=== PATIENT | female | born 1985 | race Caucasian/White ===

== ENCOUNTER 2024-05-06 17:45 | Emergency (ER) | payer OTHER, SELFPAY ==
[2024-05-06 17:48] VITALS: BP 159/100
[2024-05-06 18:48] LABS: % Basophils 0.4 % (0-2); % Immature Granulocytes 0.4 % (0-0.5); % Lymphocytes 30.3 % (20.5-51.1); % Monocytes 4.8 % (1.7-9.3); % Neutrophils 63.1 % (42.2-75.2); Absolute Eosinophils 0.1 10^3/uL (0-0.7); Absolute Monocytes 0.5 10^3/uL (0.1-0.6); Absolute Neutrophils 6.3 10^3/uL (1.4-6.5); Hematocrit 40.3 % (37.0-47.0); Hemoglobin 14.1 g/dL (12.0-16.0); Mean Corpuscular Hgb 30.2 pg (27.0-31.0); Mean Corpuscular Volume 86.3 fL (81.0-99.0); Mean Platelet Volume 9.4 fL (7.4-10.4); Nucleated Red Blood Cells % 0 %; Platelet Count 277 10^3/uL (130-400); Red Blood Cell Count 4.67 10^6/uL (4.20-5.40); Red Cell Dist. Width 12.8 % (11.5-14.5)
[2024-05-06 19:03] LABS: Urine Albumin Negative (Neg - Trace); Urine Bilirubin Negative (Negative); Urine Character Slightly Cloudy (Clear); Urine Color Yellow; Urine Glucose Negative (Negative); Urine Ketone Negative (Negative); Urine Leukocyte Negative (Negative); Urine Nitrite Negative (Negative); Urine Occult Blood 3+ (Negative); Urine Urobilinogen Negative (Neg - 1+)
[2024-05-06 19:09] LABS: Urine Bacteria Few (Negative); Urine Red Blood Cell 0-2 /HPF (0-2); Urine Squamous Cell >30 /LPF (Few); Urine White Cell 0-2 /HPF (0-5)
[2024-05-06 19:10] LABS: HCG, Serum Qualitative Screen Negative
[2024-05-06 19:16] LABS: ALT (SGPT) 33 U/L (0-35); AST (SGOT) 27 U/L (14-36); Albumin 4.7 g/dl (3.5-5.0); Alkaline Phosphatase 101 U/L (38-126); Blood Urea Nitrogen 12 mg/dl (7-17); Calcium 9.9 mg/dl (8.4-10.2); Carbon Dioxide 25 mmol/L (22-30); Chloride 100 mmol/L (98-107); Glucose 117 mg/dl (70-99); Potassium 3.9 mmol/L (3.5-5.1); Sodium 136 mmol/L (135-145); Total Bilirubin 0.6 mg/dl (0.2-1.3); Total Protein 7.1 g/dl (6.3-8.2); eGFR > 60.00
[2024-05-06] MEDS: TORADOL 15 MG IV (19:29)
[2024-05-06 19:33] VITALS: BMI 37.1
[2024-05-06 19:34] VITALS: BP 138/96
[2024-05-06 20:05] LABS: Creatine Phosphokinase 92 U/L (30-135)
[2024-05-06] MEDS: FLEXERIL 10 MG PO (22:37)
[2024-05-06 22:38] VITALS: BP 134/90
--- NOTE | 2024-05-06 22:44 | ED.GENMED ---
History of Present Illness
General
Chief Complaint: Flank Pain
Source: patient
Exam Limitations: none
Time Seen by Provider: 05/06/24 18:38
Nursing documentation reviewed up to this point in time: agreed with
History of Present Illness
History of Present Illness:
38-year-old female with history as noted presents to the ER for evaluation of back pain. Patient reports that symptoms started about a week ago and have been constant since that time. She reports pain across the low back does not localize to 1
side or the other. Worse with movement particularly flexion and rotation. No relieving factors noted. She did go to urgent care for assessment there she had a urinalysis that showed some microscopic hematuria�they were concerned potentially for a
kidney stone and referred to the ER. She has not had any dysuria, gross hematuria, change in urinary frequency. She denies any nausea, vomiting. No change in bowel movements. She denies any weakness or numbness in the legs, bowel or bladder
incontinence, saddle anesthesia. She denies any specific injury but says that she has a toddler and is constantly bending to lift her child.
Past History
Past History
ED Past Medical History: Other (LVH as seen on ECG by her family doctor, substance abuse)
ED Past Surgical History: Other ([place] teeth extraction)
Social History
Tobacco: Non-smoker
Alcohol: Occasional
Drug: IVDA
Personal: Single
Living: with family
Employment: Not employed
Review of Systems
Review of Systems
All Other Systems: ROS reviewed and negative except as documented in HPI and ROS
Constitutional: Denies fever
Respiratory: Denies trouble breathing
Cardiac: Denies chest pain
ABD/GI: Denies abdominal pain, nausea or vomiting
: Denies dysuria or frequency
Musculoskeletal: Reports back pain; Denies neck pain
Neurological: Denies headache, weakness or numbness
Phy Exam
Physical Exam
Physical Exam:
General: Awake, alert, oriented x3; no acute distress
Head: Normocephalic, atraumatic
Eyes: Conjunctiva normal, sclera anicteric
Throat: Airway intact, handling secretions
Neck: Trachea midline, supple without meningismus
Lungs:Breathing comfortably, no acute respiratory distress
Heart: Regular rate
Abd: Soft, non distended, nontender
Back: No tenderness in the thoracic or lumbar spine, no CVA tenderness; negative straight leg raise test bilaterally
Neuro: Cranial nerves grossly intact, speech fluid, motor and sensory intact in lower extremities
Extremities: Warm and well-perfused
Scores
Heart Failure Risk
Heart Failure Risk Score: Not Applicable
Heart Score for Chest Pain Patients
STEMI patient?: Not applicable
Withdrawal Assessment of Alcohol
Withdrawal Assessment Completed?: Not applicable
Course
Orders/Labs/Results
Orders:
Orders
05/06/24 18:34
Complete Blood Count/With Diff Urgent
Comprehensive Metabolic Panel Urgent
Creatine Phosphokinase Urgent
Comment: ADD ON
HCG, Serum Qualitative Screen Urgent
Comment: ADDON
Urinalysis Reflex To Culture Urgent
Date Specimen was Collected: 05/06/24
Time Specimen was Collected: 18:30
Urine Microscopic Reflex Cult Urgent
05/06/24 18:44
Add On- LAB Urgent
Tests Added?: HCG qual
CT Abd/pel Without Iv Or Oral Urgent
Comment:
Reason For Exam: flank pain, hematuria
05/06/24 19:02
Ketorolac [Toradol] 15 mg IV NOW STA
05/06/24 19:33
Add On- LAB Urgent
Tests Added?: CPK
05/06/24 22:36
Cyclobenzaprine HCl [Flexeril] 10 mg PO NOW STA
Abnormal Lab Results
05/06/24
18:34
Glucose 117 H mg/dl
(70-99)
Ur Occult Blood Reflex 3+ A
(Negative)
Urine Bacteria (Reflex) Few A
(Negative)
05/06/24 18:34
05/06/24 18:34
Vital Signs
Initial and Last Documented VS:
Initial Vital Signs
Temp Pulse Resp BP Pulse Ox
36.7 C 71 16 159/100 100
05/06/24 17:48 05/06/24 17:48 05/06/24 17:48 05/06/24 17:48 05/06/24 17:48
Last Documented Vital Signs
Temp Pulse Resp BP Pulse Ox
36.7 C 67 18 138/96 100
05/06/24 17:48 05/06/24 19:34 05/06/24 20:00 05/06/24 19:34 05/06/24 19:34
MDM/Problems Addressed
Differential Diagnosis Includes:
Back strain/spasm, nephrolithiasis, UTI
MDM/Problems Addressed:
38-year-old female presents for evaluation of pain across her low back for the past week worse with movement. Had microscopic hematuria at urgent care today and they referred her here for further assessment. Hypertensive otherwise normal vitals.
Physical exam as above. Labs sent off including a CBC and a CMP which showed no clinically significant abnormalities; hCG is negative. CPK normal. Her urinalysis did show some positive blood on dipstick but no significant blood on microscopic
analysis. It does appear to be a contaminated sample not consistent with acute infection. CT abdomen pelvis shows no acute pathology�no nephrolithiasis. Suspect that she has musculoskeletal back pain. Stable for discharge with supportive care,
follow-up with PCP regarding microscopic hematuria noted earlier. Patient comfortable with this plan. All questions answered.
*Radiology
Radiology exam reviewed: radiology read reviewed
*Pulse Oximetry
Patient hypoxic: no
*Critical Care Note
Total Time (30-74mins, 75-104mins- exclusive of procedures): Not Applicable
Data Reviewed
Source: patient and records
ED Attending Note
-
Portions of this chart may have been created with voice recognition software.� Occasional wrong word or��sound alike� substitutions may have occurred due to the inherent limitations of voice recognition software.
Discharge Plan
Departure
Patient Disposition: Home (Routine Discharge)
Date of Disposition: 05/06/24
Time of Disposition: 21:24
Patient with high blood pressure during this ER visit?: Yes
Discharge Problem:
Low back pain, Hematuria, microscopic
Instructions: Low back pain - ED discharge instructions
Prescriptions:
New
lidocaine [Tridacaine] 5 % adhesive patch,medicated
1 patch topical BID Qty: 30 0RF
cyclobenzaprine 10 mg tablet
10 mg PO TIDPRN PRN (Reason: muscle spasm) Qty: 13 0RF
No Action
PNV cmb#95-ferrous fumarate-FA [] 1 EACH tablet
1 ea PO Daily
acetaminophen 325 MG tablet
650 mg PO Q4HPRN PRN (Reason: mild pain) 0RF
ibuprofen 600 MG tablet
600 mg PO Q4HPRN PRN (Reason: cramps) 0RF
Referrals:
Jeanne Henson DO [Family Provider] - Follow up in 5-7 days
Activity Restrictions/Additional Instructions:
You can take the following medications for your low back pain:
Tylenol 1000 mg every 6 hours as needed for pain
Ibuprofen 400 mg every 6 hours as needed for pain
Cyclobenzaprine 10 mg every 8 hours as needed for pain/spasm
Lidoderm patch apply to low back every 12 hours
These medications combined with gentle stretching, heat pad, and avoidance of strenuous activity should help manage your symptoms. You should follow-up with your primary doctor this week to follow-up on your ER visit. If symptoms are worsening or
if you develop any new or concerning symptoms please return to the emergency room for reassessment.
Thank you for visiting the Emergency Department at [facility].
1. Please schedule a follow up appointment as directed. Call first thing tomorrow morning to make an appointment.
2. If indicated, please take your medications as instructed and indicated on discharge paperwork.
3. If any of your symptoms do not improve, or persist, or become more severe within 6-12 hours, please return to the emergency department for further care.
4. Please return to the emergency department if you develop a headache, neck pain/stiffness, fever greater than 100.4F, chest pain, shortness of breath, persistent nausea, vomiting, slurred speech, difficulty walking, numbness/tingling, weakness,
signs of infection or any other symptoms that are worrisome to you.
Please call [phone] if you have any questions.
Interventions
Interventions:
*Risk Screen - Suicide Last Done: 05/06/24 17:48
*General Assessment Last Done: 05/06/24 17:48
*Neglect/Abuse Screening Last Done: 05/06/24 18:40
*ED COVID-19 Vaccine History Last Done: 05/06/24 18:40
HZ-Chudan-Yerxujfctd Assessment Last Done: 05/06/24 18:40
ED-Female Genitourinary Assessment Last Done: 05/06/24 18:40
Discharge Date and Time
Print Language: ROMANIAN
== END 2024-05-06 22:38 | disposition home or self-care (01) ==
LOC: EMR 17:45
PROVIDERS: EMERGENCY PHYSICIAN Emergency Medicine; FAMILY PHYSICIAN Family Medicine
DX: M54.50 Low back pain, unspecified (principal); R31.29 Other microscopic hematuria; Z87.442 Personal history of urinary calculi
CPT/HCPCS: 99284; 96374; 74176; 80053; 81003; 81015; 82550; 84703; 85025